=== PATIENT | male | born 1975 | race African-American/Black ===

== ENCOUNTER 2017-06-11 20:26 | Emergency (ER) | payer MEDICAID ==
[~2017-06-11] VITALS: Ht 177.8 cm; Wt 83.9 kg
[2017-06-11 20:35] VITALS: BP 133/83
[2017-06-11] MEDS ORDERED: Naloxone 1mg/ml 2ml IVP ONE (20:45)
--- NOTE | 2017-06-11 20:53 | Emergency Room Report ---
History of Present Illness General Chief Complaint: Overdose Source: Patient, EMS (Faisal Yo) Present Illness HPI This is a 41-year-old male brought in by EMS after being found in his car. The patient was noted to have alteration of his mental status. Patient states that he takes Neurontin as well as Lexapro and Wellbutrin. The patient was noted to have recently filled medications the patient had taken medications.Patient denies suicidal thoughts. The patient does not recall taking his medications he states (Faisal Yo) Allergies: Coded Allergies: No Known Allergies (Unverified , 06/11/17) Patient History Past Medical History: see triage record Reviewed Nursing Documentation: PMH: Agreed, PSxH: Agreed (Faisal Yo) Nursing Documentation-PMH Hx Seizures: Yes (Faisal Yo) Review of Systems All Other Systems: limited - by jayjay (Faisal Yo) Physical Exam Vital Signs Date Time Temp Pulse Resp B/P (MAP) Pulse Ox O2 Delivery O2 Flow Rate FiO2 06/11/17 20:25 97.0 89 20 156/100 98 Room Air 97.0 Sp02 EP Interpretation: reviewed, normal General Appearance: normal inspection, well appearing, no apparent distress, alert Head: atraumatic Eyes: bilateral eye other - pinpoint pupils ENT: normal ENT inspection, hearing grossly normal, normal voice Neck: normal inspection, full range of motion, supple, no bony tend Respiratory: normal inspection, lungs clear, normal breath sounds, no respiratory distress, no retraction, no wheezing Cardiovascular #1: regular rate, rhythm, no edema Gastrointestinal: normal inspection, normal bowel sounds, non tender, soft, no guarding, no hernia Genitourinary: no CVA tenderness Musculoskeletal: normal inspection, back normal, normal range of motion Neurologic: normal inspection, alert, responsive, speech normal Psychiatric: normal inspection, judgement/insight normal, mood/affect normal Skin: normal inspection, normal color, no rash (Faisal Yo) Medical Decision Making Diagnostic Impression: Primary Impression: Drug overdose Qualified Codes: T50.901A - Poisoning by unspecified drugs, medicaments and biological substances, accidental (unintentional), initial encounter Additional Impressions: Cocaine abuse Heroin abuse ER Course Patient presented for altered mental status.Differential diagnosis included but was not limited to drug overdose, ischemic stroke, subarachnoid hemorrhage, hypoglycemia, spinal cord injury, neurodegenerative disorder, urinary tract infection, hypoxemia.Because of complexity of patient's case laboratory testing and imaging studies were ordered.The patient of was given Narcan. I noticed improvement in his mental status. The patient stated that he had done heroine as well as cocaine earlier in the day. He does not recall if he took extra amounts of his medications or not. Patient was endorsed to Dr. Aburto pending reevaluation and sobering. Labs Test 06/11/17 20:54 06/11/17 21:31 White Blood Count 10.6 K/UL (4.8-10.8) Red Blood Count 5.54 M/UL (4.70-6.10) Hemoglobin 15.1 G/DL (14.2-18.0) Hematocrit 47.3 % (42.0-52.0) Mean Corpuscular Volume 85 FL (80-99) Mean Corpuscular Hemoglobin 27.2 PG (27.0-31.0) Mean Corpuscular Hemoglobin Concent 31.9 G/DL (32.0-36.0) Red Cell Distribution Width 12.6 % (11.6-14.8) Platelet Count 194 K/UL (150-450) Mean Platelet Volume 11.6 FL (6.5-10.1) Neutrophils (%) (Auto) 81.8 % (45.0-75.0) Lymphocytes (%) (Auto) 8.9 % (20.0-45.0) Monocytes (%) (Auto) 7.2 % (1.0-10.0) Eosinophils (%) (Auto) 1.1 % (0.0-3.0) Basophils (%) (Auto) 1.0 % (0.0-2.0) Sodium Level 134 MMOL/L (136-145) Potassium Level 3.8 MMOL/L (3.5-5.1) Chloride Level 95 MMOL/L (98-107) Carbon Dioxide Level 34 MMOL/L (21-32) Anion Gap 5 mmol/L (5-15) Blood Urea Nitrogen 11 mg/dL (7-18) Creatinine 1.2 MG/DL (0.55-1.30) Estimat Glomerular Filtration Rate > 60 mL/min (>60) Glucose Level 151 MG/DL (74-106) Calcium Level 9.6 MG/DL (8.5-10.1) Total Bilirubin 0.4 MG/DL (0.2-1.0) Aspartate Amino Transf (AST/SGOT) 31 U/L (15-37) Alanine Aminotransferase (ALT/SGPT) 54 U/L (12-78) Alkaline Phosphatase 56 U/L (46-116) Ammonia 24 umol/L (11-32) Troponin I 0.000 ng/mL (0.000-0.056) Total Protein 8.8 G/DL (6.4-8.2) Albumin 4.7 G/DL (3.4-5.0) Globulin 4.1 g/dL Albumin/Globulin Ratio 1.1 (1.0-2.7) Salicylates Level 2.9 ug/mL (2.8-20) Acetaminophen Level < 2 MCG/ML (10-30) Serum Alcohol < 3 mg/dL Urine Color Yellow Urine Appearance Clear Urine pH 5 (4.5-8.0) Urine Specific Stanley 1.030 (1.005-1.035) Urine Protein 2+ (NEGATIVE) Urine Glucose (UA) Negative (NEGATIVE) Urine Ketones Negative (NEGATIVE) Urine Occult Blood Negative (NEGATIVE) Urine Nitrite Negative (NEGATIVE) Urine Bilirubin Negative (NEGATIVE) Urine Urobilinogen Normal MG/DL (0.0-1.0) Urine Leukocyte Esterase Negative (NEGATIVE) Urine RBC 0-2 /HPF (0 - 0) Urine WBC 0-2 /HPF (0 - 0) Urine Squamous Epithelial Cells None /LPF (NONE/OCC) Urine Amorphous Sediment Few /LPF (NONE) Urine Bacteria Few /HPF (NONE) Urine Opiates Screen Positive (NEGATIVE) Urine Barbiturates Screen Negative (NEGATIVE) Phencyclidine (PCP) Screen Negative (NEGATIVE) Urine Amphetamines Screen Negative (NEGATIVE) Urine Benzodiazepines Screen Negative (NEGATIVE) Urine Cocaine Screen Positive (NEGATIVE) Urine Marijuana (THC) Screen Positive (NEGATIVE) (Faisal Yo) ER Course Patient signed out to me. He presents with an altered mental status secondary to drug overdose. Admits to using heroin and cocaine tonight. Not suicidal or homicidal. No psychosis or hallucination. Back to baseline now. CT scan negative. Labs unremarkable. We'll discharge home. No criteria for 5150. This patient is a chronic risk of self injury due to poor impulse control, limited coping skills, and judgment intermittently impaired by intoxication. I believe that the available clinical evidence to suggest that these characteristics derived primarily from personality disorder and are likely very stable over time. Hospitalization would likely attenuate risk of self-harm only during [facility] period, without lasting risk reduction. Serious self-harm , while possible, would likely be inadvertent, and because of impulsivity, and foreseeable. For these reasons, I do not believe hospitalization would provide meaningful reduction in risk of self-harm. (MICH ABURTO M.D.) CT/MRI/US Diagnostic Results CT/MRI/US Diagnostic Results : Imaging Test Ordered: CT head Impression negative per radiologist (MICH ABURTO M.D.) Last Vital Signs Date Time Temp Pulse Resp B/P (MAP) Pulse Ox O2 Delivery O2 Flow Rate FiO2 06/11/17 20:25 97.0 89 20 156/100 98 Room Air 97.0 Status: improved (Faisal Yo) Status: improved (MICH ABURTO M.D.) Disposition: HOME, SELF-CARE Condition: Stable Patient Instructions: OVERDOSE, Accidental (Adult) Additional Instructions: Stop using drugs. Followup with your DrTy in 7 days. Go to rehabilitation. Return if worse. Faisal Yo Jun 11, 2017 20:53 MICH ABURTO M.D. Jun 11, 2017 23:26
[2017-06-11 21:31] LABS: EOSINOPHILS % (AUTO) 1.1 % (0.0-3.0); HEMATOCRIT 47.3 % (42.0-52.0); HEMOGLOBIN 15.1 G/DL (14.2-18.0); LYMPHOCYTES % (AUTO) 8.9 % (20.0-45.0); MEAN CORPUSCULAR VOLUME 85 FL (80-99); MONOCYTES % (AUTO) 7.2 % (1.0-10.0); NEUTROPHILS % (AUTO) 81.8 % (45.0-75.0); PLATELET COUNT 194 K/UL (150-450); RED BLOOD COUNT 5.54 M/UL (4.70-6.10); RED CELL DISTRIBUTION WIDTH 12.6 % (11.6-14.8); WHITE BLOOD COUNT 10.6 K/UL (4.8-10.8)
[2017-06-11 21:47] LABS: AMMONIA 24 umol/L (11-32); ANION GAP 5 mmol/L (5-15); BLOOD UREA NITROGEN 11 mg/dL (7-18); CALCIUM 9.6 MG/DL (8.5-10.1); CARBON DIOXIDE 34 MMOL/L (21-32); CHLORIDE 95 MMOL/L (98-107); CREATININE 1.2 MG/DL (0.55-1.30); POTASSIUM 3.8 MMOL/L (3.5-5.1); SODIUM 134 MMOL/L (136-145)
[2017-06-11 21:50] LABS: ALANINE AMINOTRANSFERASE 54 U/L (12-78); ALBUMIN 4.7 G/DL (3.4-5.0); ALBUMIN/GLOBULIN RATIO 1.1 (1.0-2.7); ALKALINE PHOSPHATASE 56 U/L (46-116); ASPARTATE AMINO TRANSFERASE 31 U/L (15-37); BILIRUBIN,TOTAL 0.4 MG/DL (0.2-1.0)
[2017-06-11 21:57] LABS: APPEARANCE,URINE CLEAR; BILIRUBIN, URINE NEGATIVE (NEGATIVE); GLUCOSE, URINE (UA) NEGATIVE (NEGATIVE); KETONES,URINE NEGATIVE (NEGATIVE); LEUKOCYTE ESTERASE ,URINE NEGATIVE (NEGATIVE); NITRITE,URINE NEGATIVE (NEGATIVE); PH,URINE 5 (4.5-8.0); PROTEIN,URINE 2+ (NEGATIVE); UROBILINOGEN,URINE NORMAL MG/DL (0.0-1.0)
[2017-06-11 22:02] LABS: COLOR,URINE YELLOW
[2017-06-11 22:35] VITALS: BP 133/69
[2017-06-11 23:50] VITALS: BP 106/56
--- NOTE | 2017-06-12 08:00 | Diagnostic Imaging Report ---
Indication: Altered mental status Technique: Continuous helical CT scanning of the head was performed without intravenous contrast material. Axial and coronal 5 mm sections were generated. Dose: Total Dose Length Product - DLP [address] Dose Index - CTDIvol(s) 70.38 mGy. Automated exposure control was utilized for dose reduction. Comparison:None. Findings: The ventricular system is normal in size and configuration. There is no shift of midline structures. No abnormal extra-axial fluid collections are noted. There is no evidence of intracerebral bleeding. No other abnormal high or low density areas are noted within the brain. Impression: Normal CT scan of the head without contrast material. The above report is concordant with preliminary reading by [facility] . The CT scanner at [facility] is accredited by the [employer] and the scans are performed using protocols designed to limit radiation exposure to as low as reasonably achievable to attain images of sufficient resolution adequate for diagnostic evaluation.
--- NOTE | 2017-06-13 16:26 | Cardiology Report ---
APPROVED REPORT EKG Measurement Heart [id number] AR [id number] Normal sinus rhythm Normal ECG
== END 2017-06-11 23:50 | disposition home or self-care (01) ==
LOC: EDBD 20:26 → EMR 21:00
DX: T50.991A Poisoning by other drugs, medicaments and biological substances, accidental (unintentional), initial encounter (principal); R41.82 Altered mental status, unspecified; F14.10 Cocaine abuse, uncomplicated; F11.10 Opioid abuse, uncomplicated; Z86.69 Personal history of other diseases of the nervous system and sense organs
CPT/HCPCS: 36415; 70450; 80053; 80307; 80329; 81003; 82140; 84484; 85025; 93005; 96374; 99284; J2310